=== PATIENT | male | born 1955 | race Caucasian/White ===

== ENCOUNTER → 2016-11-21 | Outpatient (CLI) | payer MEDICARE ==
[2016-11-21 10:43] LABS: HEMOGLOBIN 14.2 gm/dl (14.0-17.5); RED BLOOD COUNT 4.88 M/UL (4.20-5.50); WHITE BLOOD COUNT 9.4 K/UL (4.5-11.0)
[2016-11-21 11:00] LABS: BUN/CREATININE RATIO 19 (0-10)
== END ==
LOC: LAB 09:38
PROVIDERS: Physician Assistant Medical
DX: E11.9 Type 2 diabetes mellitus without complications (principal); I10 Essential (primary) hypertension; E78.2 Mixed hyperlipidemia
CPT/HCPCS: 36415; 80053; 80061; 83036; 84443; 85027

== ENCOUNTER → 2020-12-02 | Outpatient (CLI) | payer MEDICARE | LOC: EXRD 09-24 11:00 | DX: N50.9 Disorder of male genital organs, unspecified (principal) | CPT/HCPCS: 76870 ==

== ENCOUNTER 2021-03-14 12:23 | Inpatient (IN) | payer MEDICARE, MEDICAID ==
[~2021-03-14] VITALS: Ht 188 cm; Wt 90.7 kg
[2021-03-14 12:53] LABS: HEMOGLOBIN 15.5 gm/dl (14.0-17.5); RED BLOOD COUNT 5.68 M/UL (4.20-5.50); WHITE BLOOD COUNT 13.1 K/UL (4.5-11.0)
[2021-03-14] MEDS ORDERED: HYDROCODON-ACE1 EAC6 PO (18:21)
[2021-03-14] MEDS ORDERED: NUPLAZID34 MG PO (18:21)
[2021-03-14] MEDS ORDERED: RYTARY ER 36.21 EACH PO (18:22)
[2021-03-14] MEDS ORDERED: CETIRIZINE HCL10 MG PO (18:23)
[2021-03-14] MEDS ORDERED: BREO ELLIPTA 21 EACH INH (18:25)
[2021-03-14] MEDS ORDERED: KLONOPIN0.5 MG PO (18:25)
[2021-03-14] MEDS ORDERED: GABAPENTIN800 MG PO (18:26)
[2021-03-14] MEDS ORDERED: PROPRANOLOL HCL60 M1 PO (18:27)
[2021-03-14] MEDS ORDERED: TYLENOL EXTRA500 MG PO (18:28)
[2021-03-14] MEDS ORDERED: IBU800 MG PO (18:28)
[2021-03-14] MEDS ORDERED: SYMBICORT 16010.2 GM INH (18:29)
--- NOTE | 2021-03-15 01:26 | NUR ---
PT WAS SENT TO MED SURGE WITH PCU ORDERS. I CALLED DR. MCNAMARA AND HE SAID IT WAS OK TO LEAVE THEM ON MED SURGE BECAUSE THEY WERE STABLE.
[2021-03-15 08:04] LABS: RED BLOOD COUNT 5.47 M/UL (4.20-5.50); WHITE BLOOD COUNT 13.3 K/UL (4.5-11.0)
[2021-03-15 08:52] LABS: BUN/CREATININE RATIO 31 (0-10)
--- NOTE | 2021-03-15 12:39 | NUR ---
Dr. Zambrano notified of criticial [facility] of 14.7 No new orders at this time.
--- NOTE | 2021-03-15 15:40 | NUR ---
Spoke with Dr. Antione englishing PEG tube placement. She recommends placing NG to make sure patient can tolerate feeds. Will evaluate patient tomorrow. Dr. Zambrano made aware at this time.
[2021-03-16 10:20] LABS: HEMOGLOBIN 14.1 gm/dl (14.0-17.5); RED BLOOD COUNT 5.12 M/UL (4.20-5.50)
[2021-03-16 10:21] LABS: WHITE BLOOD COUNT 9.6 K/UL (4.5-11.0)
[2021-03-16 10:38] LABS: BUN/CREATININE RATIO 34 (0-10)
[2021-03-17 07:29] LABS: HEMOGLOBIN 13.8 gm/dl (14.0-17.5); RED BLOOD COUNT 4.95 M/UL (4.20-5.50); WHITE BLOOD COUNT 8.7 K/UL (4.5-11.0)
[2021-03-17 08:01] LABS: BUN/CREATININE RATIO 34 (0-10)
[2021-03-18 10:58] LABS: HEMOGLOBIN 12.9 gm/dl (14.0-17.5); RED BLOOD COUNT 4.6 M/UL (4.20-5.50); WHITE BLOOD COUNT 8.9 K/UL (4.5-11.0)
[2021-03-18 11:37] LABS: BUN/CREATININE RATIO 31 (0-10)
[2021-03-19 06:33] LABS: HEMOGLOBIN 12.7 gm/dl (14.0-17.5); RED BLOOD COUNT 4.52 M/UL (4.20-5.50); WHITE BLOOD COUNT 8.6 K/UL (4.5-11.0)
[2021-03-19 06:58] LABS: BUN/CREATININE RATIO 23 (0-10)
[2021-03-20 06:33] LABS: HEMOGLOBIN 13.5 gm/dl (14.0-17.5); RED BLOOD COUNT 4.88 M/UL (4.20-5.50); WHITE BLOOD COUNT 9.5 K/UL (4.5-11.0)
[2021-03-20 06:47] LABS: BUN/CREATININE RATIO 24 (0-10)
[2021-03-21 11:46] LABS: HEMOGLOBIN 14.5 gm/dl (14.0-17.5); RED BLOOD COUNT 5.27 M/UL (4.20-5.50); WHITE BLOOD COUNT 10.9 K/UL (4.5-11.0)
[2021-03-21 12:19] LABS: BUN/CREATININE RATIO 22 (0-10)
[2021-03-22 07:55] LABS: HEMOGLOBIN 14.4 gm/dl (14.0-17.5); RED BLOOD COUNT 5.23 M/UL (4.20-5.50); WHITE BLOOD COUNT 13.1 K/UL (4.5-11.0)
[2021-03-22 08:31] LABS: BUN/CREATININE RATIO 23 (0-10)
--- NOTE | 2021-03-22 10:09 | NUR ---
PATIENTS SISTER MANDO GAVE PERMISSION TO SHAVE PATIENTS MEMBRENO AT THIS TIME DUE TO FOOD CONTENTS BEING IN IT. UNABLE TO CALL PATIENTS SON AT THIS TIME. PATIENT ALSO CONSENTED FOR US TO SHAVE MEMBRENO AT THIS TIME.
[2021-03-23 08:32] LABS: HEMOGLOBIN 13.7 gm/dl (14.0-17.5); RED BLOOD COUNT 4.95 M/UL (4.20-5.50); WHITE BLOOD COUNT 11.4 K/UL (4.5-11.0)
[2021-03-23 09:00] LABS: BUN/CREATININE RATIO 19 (0-10)
[2021-03-23] MEDS ORDERED: DECADRON6 MG PO (10:29)
[2021-03-23] MEDS ORDERED: LEVOFLOXACIN750 MG PO (10:29)
== END 2021-03-23 13:57 | disposition home health service (06) | DRG 177 ==
LOC: ER1 12:23 → MED SURG 4 16:23 → CDU 16:23 → MED SURG 4 03-15 01:25
PROVIDERS: Family Medicine; Internal Medicine; ADMIT Internal Medicine
PROC: XW033E5 Introduction of Remdesivir Anti-infective into Peripheral Vein, Percutaneous Approach, New Technology Group 5 (ICD-10-PCS; principal; 2021-03-14)
PROC: 3E0333Z Introduction of Anti-inflammatory into Peripheral Vein, Percutaneous Approach (ICD-10-PCS; 2021-03-14)
PROC: 8E0ZXY6 Isolation (ICD-10-PCS; 2021-03-14)
DX: U07.1 COVID-19 (principal); J12.82 Pneumonia due to coronavirus disease 2019; J96.01 Acute respiratory failure with hypoxia; J69.0 Pneumonitis due to inhalation of food and vomit; J15.9 Unspecified bacterial pneumonia; G93.41 Metabolic encephalopathy; J96.02 Acute respiratory failure with hypercapnia; M62.82 Rhabdomyolysis; N17.9 Acute kidney failure, unspecified; I10 Essential (primary) hypertension; R13.10 Dysphagia, unspecified; E86.0 Dehydration; G20 Parkinson's disease; Z87.891 Personal history of nicotine dependence; Z80.0 Family history of malignant neoplasm of digestive organs; Z80.8 Family history of malignant neoplasm of other organs or systems
CPT/HCPCS: 36415; 36600; 43752; 51701; 70450; 71045; 74230; 80048; 80053; 80307; 81001; 82550; 82553; 82803; 83605; 83735; 83874; 83880; 84100; 84484; 85025; 85027; 85610; 85652; 85730; 86140; 87040; 92526; 92610; 92611-GN; 94640; 94664; 94760; 97110-GP-CQ; 97162; 97530; 97530-GP-CQ; 99285; C9113; G0480; J1100; J1650; J2543; J3370; J7030; U0002